=== PATIENT | female | born 1975 | race Caucasian/White ===

== ENCOUNTER 2020-08-21 00:11 | Inpatient (IN) | payer MEDICARE ==
[~2020-08-21] VITALS: Ht 152.4 cm; Wt 104.3 kg
[2020-08-21 04:01] LABS: BASOPHILS 0.3 % (0-2); EOSINOPHILS 1.3 % (0-7); HEMOGLOBIN 9.8 g/dL (12-16); MCH 20.2 pg (26.0-34.0); MCHC 29.7 g/dL (31.0-37.0); MCV 68.2 fL (80.0-100.0); MEAN PLATELET VOLUME 8.1 fL (7.4-10.4); MONOCYTES 3.2 % (2-11); NEUTROPHILS 80.2 % (40-80); PLATELET COUNT 546 10x3/uL (130-400); RBC 4.84 10x6/uL (4.00-5.40); RDW 20.2 % (11.5-14.5); WBC 12.9 10x3/uL (4.8-10.8)
[2020-08-21 04:19] LABS: ANION GAP 16.7 mmol/L (8-16); CALCIUM 8.8 mg/dL (8.5-10.1); CARBON DIOXIDE 24.5 mmol/L (21.0-32.0); CREATININE - SERUM 0.9 mg/dL (0.6-1.3); POTASSIUM - SERUM 4.2 mmol/L (3.5-5.1)
[2020-08-21 04:24] LABS: ALBUMIN 3.5 g/dL (3.4-5.0); BILIRUBIN - TOTAL 0.44 mg/dL (0.2-1.3); C-REACTIVE PROTEIN 2.2 mg/dL (0.0-0.9); PROTEIN - SERUM 7.7 g/dL (6.4-8.2)
--- NOTE | 2020-08-21 05:05 | NUR ---
BLOOD CULTURES X2 DRAWN AND SENT TO LAB.
[2020-08-21 06:28] VITALS: BP 156/64; BMI 45.0
--- NOTE | 2020-08-21 08:01 | NUR ---
ALERT AND ORIENTED. ASSESSMENT COMPLETE. BED LOW. CALL MORELAND AND PERSONAL ITEMS IN REACH. WILL CONTINUE TO MONITOR.
[2020-08-21 08:39] VITALS: BP 123/73
--- NOTE | 2020-08-21 09:17 | NUR ---
REDNESS TO LEFT UPPER SHOULDER MARKED.
--- NOTE | 2020-08-21 09:58 | NUR ---
EDUCATION PROVIDED TO PATIENT ON USE OF SCDS. STATES GETS UP OFTEN AND DOES NOT WANT TO WEAR.
[2020-08-21 12:34] VITALS: BP 137/68
[2020-08-21 13:45] LABS: % SATURATION 4 % (15-55); IRON 23 ug/dl (35-150); TOTAL IRON BIND CAPACITY 538 ug/dl (260-445)
[2020-08-21 13:46] LABS: UNSAT IRON BIND CAPACITY 515 ug/dl (150-375)
--- NOTE | 2020-08-21 16:11 | NUR ---
PATIENT C/O INCREASED THROBBING PAIN FROM LEFT SHOULDER DOWN LEFT ARM TO LEFT ELBOW. REDNESS STILL LOCALIZED TO LEFT SHOULDER, SAME AM ASSESSMENT. BUT WARMTH ALL AROUND UPPER LEFT SHOULDER AND LEFT UPPER ARM. NO WARMTH OR SWELLING NOTED TO LEFT ELBOW.
[2020-08-21 16:54] VITALS: BP 128/71
--- NOTE | 2020-08-21 17:00 | NUR ---
PAGED ABOUT PATIENT INCREASED PAIN AND SWELLING.
--- NOTE | 2020-08-21 18:28 | NUR ---
PATIENT C/O PAIN AT IV SITE. JERKED AND PULLED OUT IV. WILL SITE NEW IV.
--- NOTE | 2020-08-21 18:49 | NUR ---
SPOKE WITH DR MAJOR ABOUT PATIENT'S INCREASED PAIN AND SWELLING. ORDERS GIVEN FOR CT WITH AND WITHOUT CONTRAST FOR POSSIBLE BACK ABCESS. ORDERS GIVEN FOR BLOOD CULTURES, CBC, AND CRP. 20G IV SITED TO RIGHT HAND AFTER TWO ATTEMPTS BY ONE RN.
[2020-08-21 19:18] LABS: BASOPHILS 1.3 % (0-2); EOSINOPHILS 0.3 % (0-7); HEMATOCRIT 29.3 % (36.0-48.0); HEMOGLOBIN 8.7 g/dL (12-16); LYMPHOCYTES 21.5 % (15-50); MCH 20.3 pg (26.0-34.0); MCHC 29.8 g/dL (31.0-37.0); MCV 68.1 fL (80.0-100.0); MEAN PLATELET VOLUME 7.9 fL (7.4-10.4); MONOCYTES 8.5 % (2-11); NEUTROPHILS 68.4 % (40-80); PLATELET COUNT 488 10x3/uL (130-400); WBC 14.3 10x3/uL (4.8-10.8)
[2020-08-21 20:00] VITALS: BP 124/69
--- NOTE | 2020-08-21 20:00 | NUR ---
PT SITTING UP IN BED WITHOUT DISTRESS, AOX4. LAB DRAWING BLOOD CULTURES AT THIS TIME. CT ALSO CAME TO BEDSIDE TO TAKE PT FOR SCAN. DENIES NEEDS. CL IN [place]
--- NOTE | 2020-08-21 23:30 | NUR ---
CALLED DR MAJOR ABOUT PT UNCONTROLLED PAIN. ORDER RECIEVED FOR PERCOCET. GAVE ORDERED. UPDATED DR MAJOR ON CT RESULTS WELL. NO OTHER ORDERS.
[2020-08-22] VITALS: BP 124/71
[2020-08-22 04:00] VITALS: BP 123/62
[2020-08-22 05:55] LABS: BASOPHILS 0.5 % (0-2); EOSINOPHILS 1.4 % (0-7); HEMATOCRIT 26.8 % (36.0-48.0); HEMOGLOBIN 8.3 g/dL (12-16); LYMPHOCYTES 37.9 % (15-50); MCH 20.8 pg (26.0-34.0); MCHC 30.8 g/dL (31.0-37.0); MCV 67.6 fL (80.0-100.0); MEAN PLATELET VOLUME 8.4 fL (7.4-10.4); MONOCYTES 5.9 % (2-11); NEUTROPHILS 54.3 % (40-80); PLATELET COUNT 457 10x3/uL (130-400); RBC 3.97 10x6/uL (4.00-5.40); RDW 20.2 % (11.5-14.5); WBC 12.9 10x3/uL (4.8-10.8)
[2020-08-22 06:25] LABS: ANION GAP 14.1 mmol/L (8-16); CALCIUM 8.3 mg/dL (8.5-10.1); CARBON DIOXIDE 22.4 mmol/L (21.0-32.0); CREATININE - SERUM 0.9 mg/dL (0.6-1.3); MAGNESIUM - SERUM 1.9 mg/dL (1.8-2.4); PHOSPHOROUS 3.4 mg/dL (2.5-4.9); POTASSIUM - SERUM 3.5 mmol/L (3.5-5.1)
[2020-08-22 08:25] VITALS: BP 146/74
[2020-08-22 12:50] VITALS: BP 163/90
[2020-08-22 14:18] VITALS: Ht 152.4 cm; Wt 104.3 kg
[2020-08-22 17:08] VITALS: BP 130/73
--- NOTE | 2020-08-22 19:30 | NUR ---
PT SITTING UP IN BED WITHOUT DISTRESS, PAIN TO LEFT SHOULDER 11/12. TORADOL GIVEN ORDERED. DENIES OTHER NEEDS AT THIS TIME. CL IN REACH
[2020-08-22 20:00] VITALS: BP 127/73
--- NOTE | 2020-08-22 21:30 | NUR ---
PT HIT RIGHT HAND ON SIDE TABLE AND ACCIDENTLY PULLED IV OUT. CATH INTACT. SITED 20G IV TO LEFT FA X1 ATTEMPT. GAVE PT FLEXERIL AND MOTRIN FOR PAIN. DENIES OTHER NEEDS. CL IN REACH
[2020-08-23] VITALS: BP 108/58
--- NOTE | 2020-08-23 00:30 | NUR ---
PT STATES PAIN TO LEFT SHOULDER. PERCOCET GIVEN AND ICE PACK APPLIED TO SHOULDER. DENIES OTHER NEEDS. CL IN REACH
[2020-08-23 04:00] VITALS: BP 127/65
[2020-08-23 05:59] LABS: EOSINOPHILS 2.9 % (0-7); HEMATOCRIT 26.8 % (36.0-48.0); HEMOGLOBIN 8.3 g/dL (12-16); LYMPHOCYTES 45.3 % (15-50); MCHC 30.9 g/dL (31.0-37.0); MEAN PLATELET VOLUME 8.5 fL (7.4-10.4); MONOCYTES 7.7 % (2-11); NEUTROPHILS 43.1 % (40-80); PLATELET COUNT 476 10x3/uL (130-400); RBC 3.94 10x6/uL (4.00-5.40); RDW 20.3 % (11.5-14.5)
[2020-08-23 06:02] LABS: WBC 9.6 10x3/uL (4.8-10.8)
[2020-08-23 09:11] VITALS: BP 129/64
[2020-08-23 12:35] VITALS: BP 136/79
[2020-08-23 16:27] VITALS: BP 121/61
[2020-08-23 22:09] VITALS: BP 119/57
--- NOTE | 2020-08-24 03:03 | NUR ---
I have reviewed this patient and I concur with the Shift Assessment completed by the Licensed Practical Nurse today this shift.
[2020-08-24 04:58] VITALS: BP 140/43
[2020-08-24 06:09] LABS: BASOPHILS 1.2 % (0-2); EOSINOPHILS 2.6 % (0-7); HEMATOCRIT 29.1 % (36.0-48.0); HEMOGLOBIN 9.1 g/dL (12-16); LYMPHOCYTES 42.6 % (15-50); MCH 21.3 pg (26.0-34.0); MCHC 31.2 g/dL (31.0-37.0); MCV 68.4 fL (80.0-100.0); MEAN PLATELET VOLUME 8.4 fL (7.4-10.4); MONOCYTES 6.7 % (2-11); NEUTROPHILS 46.9 % (40-80); PLATELET COUNT 517 10x3/uL (130-400); RBC 4.25 10x6/uL (4.00-5.40); RDW 20.1 % (11.5-14.5); WBC 10.6 10x3/uL (4.8-10.8)
--- NOTE | 2020-08-24 08:00 | NUR ---
ALERT AND ORIENTED X4. IV RESITED TO RIGHT F/A DUE TO INFILTRATION WITH 22G X1 STICK. HAND GRASP AND ROM DIMINISHED RO LUE. REDNESS NOTED TO LEFT SCAPULA. ENCOURAGED TO USE CALL LIGHT FOR ASSSIT.
[2020-08-24 11:34] VITALS: BP 134/79
[2020-08-24 17:26] VITALS: BP 113/53
[2020-08-24 20:00] VITALS: BP 102/74
--- NOTE | 2020-08-25 02:30 | NUR ---
I have reviewed this patient and I concur with the Shift Assessment completed by the Licensed Practical Nurse today this shift.
[2020-08-25 04:00] VITALS: BP 130/68
--- NOTE | 2020-08-25 08:00 | NUR ---
ALERT AND ORIENTED X4. HAND GRASP 2+ TO LEFT HAND WITH LIMITED ROM NOTED. ENCOURAGED TO USE CALL LIGHT FOR ASSSIT. MOTRIN EFFECTIVE FOR PAIN MANAGEMENT.
[2020-08-25 09:00] VITALS: BP 123/72
[2020-08-25] MEDS ORDERED: LISINOPRIL5 MG PO (12:39)
[2020-08-25 12:53] VITALS: BP 144/66
--- NOTE | 2020-08-25 14:17 | NUR ---
IV DISCONTINUED AND VERBALIZED UNDERSTANDING OF DISCHARGE INSTRUCTIONS.
--- NOTE | 2020-08-25 14:23 | MORECARE ---
CASE MANAGEMENT DISCHARGE SUMMARY PATIENT: TONYA XIAO UNIT: [id number] ADM DATE: 08/21/20 AGE: 44 : 75 SEX: F ROOM/BED: D.2215 AUTHOR: HARLEY CHATTERJEE PHYSICIAN: REFERRING PHYSICIAN: PARAG MAJOR MD DATE OF SERVICE: 08/25/20 Case Management Discharge Planning Summary COMMENTS ENTERED DATE: 08/25/20 14:19 CT COMMENT TYPE: Discharge Planning REVIEWER: Kobi Zarate CM met with patient to complete DC plan and to evaluate needs. Patient lives independently with her , Morales Abbasi, . Patient stated that her home is safe and has electricity and running water. Patient stated that the home has 4 steps to enter and she is able to manage the steps without difficulty. Patient stated that she has no problems paying for medications and she fills her medications at [facility] on [address]. Patient stated that her primary care physician is Dr. Major. At discharge, the patient plans to return home and feels this is a safe discharge. CM discussed availability of home health, rehab services, and medical equipment. Patient declined HHS, SNF, IPR, and DME. Patient voiced no other needs at this time and is satisfied with DC plan. Transportation provider at discharge will be with Morales. DC IMM delivered, explained, signed by the patient, and placed in chart. Signed form also left with the patient. CM will continue to follow and will assist as needed with dc plans/needs. DCP REVIEW SUMMARY ANTICIPATED D/C DATE: 08/25/2020 EXPECTED LOS : 4 CASE STATUS: DCP Initiated INITIAL REVIEW: 08/21/2020 INITIAL REVIEWER: Kobi Zarate FINAL DISCHARGE DISPOSITION: : FINAL REVIEWER: FINAL REVIEW DATE: DCP Focus Questions & Answers DCP Evaluation QUESTION: ANSWER Patient and/or caregiver agree upon recommended discharge plan? : Yes Family / Caregiver's ability to cope with chronic illness: : a. Adequate (ability to meet patient's medical needs, ensures patient attends medical appts.) Patient's current cognitive status: : *Oriented to person, place, situation, time and present Patient's ability to cope with chronic illness : d. No chronic illness Patient gives permission to discuss discharge plans with: (name, relationship and number) : , Morales Abbasi, Does the patient have the ability to pay for or attain post discharge needs / services? : Yes Functional screen assessment: : Basic needs can adequately be met by self Family / Caregiver's ability to cope with chronic illness: : a. Adequate (ability to meet patient's medical needs, ensures patient attends medical appts.) Physical Status: : Independent with ADL's Equipment needed for post hospitalization: : None Is there a likelihood that the patient will require additional services to return to the preadmission environment? : No Living Arrangements: : Home with Spouse/Significant Other Patient with capacity for self-care or can be cared for in same environment as prior to hospitalization? : Yes Baseline cognitive status: : *Oriented to person, place, situation, time and present Physical environment modification needed / anticipated for discharge: : No Medication Management: : Patient states can read and understand medication labels Medication Management: : Patient states can afford medications Pharmacy name(s): : [email or web address] on [address] Does Patient have transportation to get home and to follow-up medical appointments when discharged from the hospital? : Yes Would patient like to participate in any Care Coordination programs (if applicable): : Not applicable Does the patient have electricity at home? : Yes Does the patient have running water in their house? : Yes Equipment in use: : None Mental health screen: : No mental health history DCP Re-evaluation QUESTION: ANSWER Would patient like to participate in any Care Coordination programs (if applicable): : Not applicable PATIENT: TONYA XIAO ENCOUNTER: [id number] MEDICAL RECORD#: [id number] ADMISSION DATE: 08/21/2020 DISCHARGE DATE: 08/25/2020 ATTENDING MD: MONSERRAT: AGE: 44 MARITAL STATUS: S DC PLAN ID: [id number] FACILITY: [facility] PRINTED ON: 08/25/20 14:22 CT All edits/amendments must be made on the electronic document DICTATION DATE: 08/25/201421 PIT HAND: LEX 08/25/201421 RPT#: [id number] DC DATE:08/25/20 STATUS: DIS IN [facility] [address] [place] [address] END OF REPORT
--- NOTE | 2020-08-26 09:44 | MORECARE ---
CASE MANAGEMENT DISCHARGE SUMMARY PATIENT: TONYA XIAO UNIT: [id number] ADM DATE: 08/21/20 AGE: 44 : 75 SEX: F ROOM/BED: D.2215 AUTHOR: HARLEY CHATTERJEE PHYSICIAN: REFERRING PHYSICIAN: PARAG MAJOR MD DATE OF SERVICE: 08/26/20 Case Management Discharge Planning Summary COMMENTS ENTERED DATE: 08/25/20 14:19 CT COMMENT TYPE: Discharge Planning REVIEWER: Kobi Zarate CM met with patient to complete DC plan and to evaluate needs. Patient lives independently with her , Morales Abbasi, . Patient stated that her home is safe and has electricity and running water. Patient stated that the home has 4 steps to enter and she is able to manage the steps without difficulty. Patient stated that she has no problems paying for medications and she fills her medications at [facility] on [address]. Patient stated that her primary care physician is Dr. Major. At discharge, the patient plans to return home and feels this is a safe discharge. CM discussed availability of home health, rehab services, and medical equipment. Patient declined HHS, SNF, IPR, and DME. Patient voiced no other needs at this time and is satisfied with DC plan. Transportation provider at discharge will be with Morales. DC IMM delivered, explained, signed by the patient, and placed in chart. Signed form also left with the patient. CM will continue to follow and will assist as needed with dc plans/needs. DCP REVIEW SUMMARY ANTICIPATED D/C DATE: 08/25/2020 EXPECTED LOS : 4 CASE STATUS: DCP Complete INITIAL REVIEW: 08/21/2020 INITIAL REVIEWER: Kobi Zarate FINAL DISCHARGE DISPOSITION: 01 : Home or Self Care (Routine Discharge) FINAL REVIEWER: Kobi Zarate FINAL REVIEW DATE: 08/26/2020 DCP Focus Questions & Answers DCP Evaluation QUESTION: ANSWER Patient and/or caregiver agree upon recommended discharge plan? : Yes Family / Caregiver's ability to cope with chronic illness: : a. Adequate (ability to meet patient's medical needs, ensures patient attends medical appts.) Patient's current cognitive status: : *Oriented to person, place, situation, time and present Patient's ability to cope with chronic illness : d. No chronic illness Patient gives permission to discuss discharge plans with: (name, relationship and number) : , Morales Abbasi, Does the patient have the ability to pay for or attain post discharge needs / services? : Yes Functional screen assessment: : Basic needs can adequately be met by self Family / Caregiver's ability to cope with chronic illness: : a. Adequate (ability to meet patient's medical needs, ensures patient attends medical appts.) Physical Status: : Independent with ADL's Equipment needed for post hospitalization: : None Is there a likelihood that the patient will require additional services to return to the preadmission environment? : No Living Arrangements: : Home with Spouse/Significant Other Patient with capacity for self-care or can be cared for in same environment as prior to hospitalization? : Yes Baseline cognitive status: : *Oriented to person, place, situation, time and present Physical environment modification needed / anticipated for discharge: : No Medication Management: : Patient states can read and understand medication labels Medication Management: : Patient states can afford medications Pharmacy name(s): : [email or web address] on [address] Does Patient have transportation to get home and to follow-up medical appointments when discharged from the hospital? : Yes Would patient like to participate in any Care Coordination programs (if applicable): : Not applicable Does the patient have electricity at home? : Yes Does the patient have running water in their house? : Yes Equipment in use: : None Mental health screen: : No mental health history DCP Re-evaluation QUESTION: ANSWER Would patient like to participate in any Care Coordination programs (if applicable): : Not applicable PATIENT: TONYA XIAO ENCOUNTER: [id number] MEDICAL RECORD#: [id number] ADMISSION DATE: 08/21/2020 DISCHARGE DATE: 08/25/2020 ATTENDING MD: MONSERRAT: AGE: 44 MARITAL STATUS: S DC PLAN ID: [id number] FACILITY: [facility] PRINTED ON: 08/26/20 9:44 CT All edits/amendments must be made on the electronic document DICTATION DATE: 08/26/20943 CERTIFIED PROFESSIONAL CONTROLLER: LEX 08/26/20943 RPT#: [id number] DC DATE:08/25/20 STATUS: DIS IN [facility] [address] [place] [address] END OF REPORT
== END 2020-08-25 14:19 | disposition home or self-care (01) | DRG 603 ==
LOC: D.ER 00:11 → D.MS 05:31
PROVIDERS: Family Medicine; ADMIT Emergency Medicine; ATTEND Emergency Medicine
DX: L03.312 Cellulitis of back [any part except buttock and flank] (principal); J44.9 Chronic obstructive pulmonary disease, unspecified; D47.3 Essential (hemorrhagic) thrombocythemia; D64.9 Anemia, unspecified; I10 Essential (primary) hypertension; M54.12 Radiculopathy, cervical region